=== PATIENT | male | born 1980 | race Caucasian/White ===

== ENCOUNTER 2017-05-08 17:01 | Emergency (ER) | payer SELFPAY ==
[2017-05-08 17:07] VITALS: BP 144/91
== END 2017-05-08 17:58 | disposition left against medical advice (07) ==
LOC: ED 17:01
DX: F23 Brief psychotic disorder (principal); Z53.21 Procedure and treatment not carried out due to patient leaving prior to being seen by health care provider

== ENCOUNTER 2017-09-28 12:58 | Emergency (ER) | payer MEDICAID ==
[2017-09-28 13:06] VITALS: BP 131/104
--- NOTE | 2017-09-28 13:31 | ED Physician Documentation ---
PD HPI MHE - Stated complaint Stated Complaint: MHE - Chief complaint Chief Complaint: MHE - History obtained from History obtained from: Patient - History of Present Illness Primary symptom: Other (This is a 37-year-old gentleman without history of psychiatric disorders. He says he was arrested in April for second-degree assault, "a misunderstanding." He was released from [facility] several months ago and has a court date in January. He says that at some point the professional driver told him he needed a mental health evaluation before that court date, but there was no specific reason for coming in today. He has no acute mental health complaints, specifically he denies a history of mental health issues, no substance use other than marijuana, no hallucinations or delusions. He says he does not know why he was told he needed a mental health evaluation.) Review of Systems Ten Systems: 10 systems reviewed and negative Psychiatric: denies: Depressed, Suicidal, Homicidal, Hallucinations, Delusions, Anxiety PD PAST MEDICAL HISTORY - Past Surgical History Past Surgical History: Yes - Present Medications Home Medications: Ambulatory Orders Medication Instructions Recorded Confirmed No Known Home Medications [No 05/08/17 09/28/17 Known Home Medications] - Allergies Allergies/Adverse Reactions: Allergies Allergy/AdvReac Type Severity Reaction Status Date / Time No Known Drug Allergies Allergy Verified 09/28/17 13:06 - Social History Does the pt smoke?: No Smoking Status: Never smoker Does the pt drink ETOH?: No PD ED PE NORMAL - Vitals Vital signs reviewed: Yes - General General: Alert and oriented X 3, No acute distress - HEENT HEENT: PERRL, EOMI - Neck Neck: Supple, no meningeal sign, No bony TTP - Neuro Neuro: Alert and oriented X 3, 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 I will have social work speak with him. Departure - Departure Disposition: Home, Self Care Clinical Impression: Mental health-related complaint Condition: Good Record reviewed to determine appropriate education?: Yes Comments: Follow-up with [facility] at [phone] to schedule psychiatric care and counseling. Your blood pressure was elevated today on check into the emergency department. This does not mean that you have hypertension, it is a common phenomenon to come to the emergency department and have elevated blood pressure. I recommend that you see your primary care physician within the week to have it rechecked when you are feeling better.
== END 2017-09-28 14:15 | disposition home or self-care (01) ==
LOC: ED 12:58
DX: Z04.6 Encounter for general psychiatric examination, requested by authority (principal); R03.0 Elevated blood-pressure reading, without diagnosis of hypertension
CPT/HCPCS: 99283